=== PATIENT | female | born 1955 | race Two or more races ===

== ENCOUNTER 2016-12-15 20:17 | Inpatient (IN) | payer MEDICARE, OTHER ==
[~2016-12-15] VITALS: Ht 172.7 cm; Wt 116.1 kg
--- NOTE | 2016-12-15 20:30 | NUR ---
ADMITTED A 60 Y/O FEMALE FROM [facility], PATIENT BROUGHT BY AMBULANCE VIA [facility], ON 5150 HOLD DTS, BASED ON HOLD, PATIENT IS CALLED THE SHERRIFF AND STATED THAT SHE IS SUICIDAL, SHE KEEPS ON SAYING THAT SHE WAS ON THE EDGE BUT REFUSED TO DISCUSS THE PLAN. PATIENT ADMITTING DX. PSYCHOSIS AND MEDICAL DX. OF COPD, SARCOIDOSIS, DYSLIPIDEMIA AND EMPHYSEMA. UPON FACE TO FACE EVALUATION, PATIENT APPEARED ALERT AND ORIENTED X 3, CALM, QUIET, DEPRESSED, ISOLATIVE, COOPERATIVE, PATIENT STATED THAT SHE IS ON THE EDGE OF BEING SUICIDAL BUT NO PLAN. HEAD TO TOE ASSESSMENT DONE. PICTURES DONE. PATIENT UNABLE TO SIGN PAPER WORKS. BELONGINGS AND CONTRABAND INSPECTED AND PLACED TO SAFETY LOCKED CABINET. NOTIFIED DR. DRISCOLL. NOTIFIED DR. SMITH TO RECONCILE THE MEDICATIONS. WILL CONTINUE TO MONITOR [id number] FOR SAFETY
[2016-12-15] MEDS ORDERED: BENZ-13 PO (22:28)
[2016-12-15] MEDS ORDERED: LAMO200T2 PO (22:28)
[2016-12-15] MEDS ORDERED: CARI350T PO (22:28)
[2016-12-15] MEDS ORDERED: IPRA3AMP NEB (22:28)
[2016-12-15] MEDS ORDERED: HYDR-548 PO (22:28)
[2016-12-15] MEDS ORDERED: BUPR300T52 PO (22:28)
[2016-12-15] MEDS ORDERED: DIAZ10TA PO (22:30)
[2016-12-15] MEDS ORDERED: DOXY100C53 PO (22:31)
[2016-12-15] MEDS ORDERED: OLAN15TA3 PO (22:35)
[2016-12-15] MEDS ORDERED: PRED20TA PO (22:35)
[2016-12-15] MEDS ORDERED: ZIPR60CA2 PO (22:35)
--- NOTE | 2016-12-15 22:57 | NUR ---
GPS RN NOTE: PATIENT REQUESTED SLEEPING PILL, TEMAZEPAM 15 MG PO GIVEN FOR INABILITY TO SLEEP, CHARGE NURSE OVERRIDE THE MEDICATION, WILL CONTINUE TO MONITOR [id number] FOR SAFETY
[2016-12-16 00:51] VITALS: BP 134/78
--- NOTE | 2016-12-16 05:52 | NUR ---
GPS RN NOTE TYLENOL 650 MG PO GIVEN ORDERED FOR 610 HEADACHE, REQUESTED BY THE PATIENT, CN OVERRIDE MEDICATION
--- NOTE | 2016-12-16 07:05 | NUR ---
GPS RN NOTE: BRUNA (SON) NOTIFIED OF THE ADMISSION OF THE PATIENT
[2016-12-16 07:18] LABS: BASOPHILS % (AUTO) 0.4 % (0.0-2.0); EOSINOPHILS # (AUTO) 0.2 /CMM (0.0-0.7); EOSINOPHILS % (AUTO) 2.1 % (0.0-6.0); HEMATOCRIT 44 % (33-45); HEMOGLOBIN 14.7 g/dL (11.5-14.8); LYMPHOCYTES % (AUTO) 31.5 % (20.0-44.0); MEAN CORPUSCULAR HEMOGLOBIN 33 PG (26.0-33.0); MEAN CORPUSCULAR HGB CONC 34 g/dl (31.0-36.0); MEAN CORPUSCULAR VOLUME 97 fL (82-100); MONOCYTES # (AUTO) 0.6 /CMM (0.1-1.30); MONOCYTES % (AUTO) 5.8 % (2.0-12.0); NEUTROPHILS # (AUTO) 5.8 /CMM (1.8-8.9); NEUTROPHILS % (AUTO) 60.2 % (43.0-81.0); PLATELET COUNT (AUTO) 265 /CMM (150-450); RDW COEFFICIENT OF VARIATION 13.2 (11.5-15.0); RED BLOOD CELL COUNT(AUTO) 4.51 MIL/uL (4.0-5.2); WHITE BLOOD COUNT (AUTO) 9.6 K/uL (4.3-11.0)
[2016-12-16 07:50] LABS: ALBUMIN 3.3 g/dL (3.4-5.0); BILIRUBIN,TOTAL 0.4 mg/dL (0.2-1.0); CALCIUM, SERUM 8.8 mg/dL (8.5-10.1); POTASSIUM 3.8 mmol/L (3.5-5.1); TOTAL PROTEIN, SERUM 6.4 g/dL (6.4-8.2)
[2016-12-16 08:00] VITALS: BP 130/76
--- NOTE | 2016-12-16 09:17 | NUR ---
GPS RN NOTES/ ADMINISTERED KLONOPIN 0.5 MG PO PRN FOR ANXIETY, PARANOIA, PER PATIENT REQUEST, V/S TAKEN EJ=535/76, P-75, CONTINUED MONITORING.
--- NOTE | 2016-12-16 15:32 | NUR ---
Initial Discharge Plan: Patient resides in a house with her two sons, located at [address] [place] [id number]; [phone] and wishes to return there upon discharge. SW spoke with pt's son, Kyler at [phone]. Kyler stated that he also wanted his mother to return back home once she was stable. Patient will be given a referral for Nicotine Anonymous upon discharge. AMOS will work to formulate a safe and proper discharge.
[2016-12-16 15:59] VITALS: BP 154/70
--- NOTE | 2016-12-16 18:05 | NUR ---
GPS RN NOTES/ ADMINISTERED DIAZEPAM 5 MG PO PRN FOR ANXIETY, PARANOIA, PER PATIENT REQUEST, V/S TAKEN BP-154/70, P-72, CONTINUED MONITORING.
[2016-12-16 20:26] VITALS: BP 132/61
[2016-12-17 08:08] VITALS: BP 145/98
--- NOTE | 2016-12-17 15:29 | NUR ---
AMOS spoke with pt's psychiatrist, Dr. Narvaez, who informed SW that pt could be discharged tomorrow, sometime after noon. SW called pt's son, Kyler, at [phone] and updated him. Kyler confirmed that he will be able to pick pt up tomorrow once a time is confirmed. AMOS will follow up with discharge.
[2016-12-17 16:12] VITALS: BP 139/71
--- NOTE | 2016-12-17 18:36 | NUR ---
GPS RN NOTES/ ADMINISTERED DIAZEPAM 5 MG PO PRN FOR ANXIETY, PER PATIENT REQUEST, V/S TAKEN BP-139/71, P-86, CONTINUED MONITORING.
[2016-12-17 20:11] VITALS: BP 109/64
--- NOTE | 2016-12-18 06:43 | NUR ---
RN GPS NOTES PATIENT AWAKE AT THIS TIME , NO ACUTE DISTRESS NOTED . ALL NEEDS ATTENDED ANTICIPATED . DENIES SI/HI AT THIS TIME , WILL ENDORSE TO NEXT SHIFT FOR CONTINUITY CARE
[2016-12-18 08:00] VITALS: BP 129/69
--- NOTE | 2016-12-18 08:55 | NUR ---
DR. DRISCOLL GAVE AN ORDER TO D/C HOLD D/C HOME. PT. WITHOUT DISTRESS, DENIES SUICIDAL AND HOMICIDAL. TO FOLLOW UP WITH PSYCH AND MEDICAL DOCTORS.
--- NOTE | 2016-12-18 12:09 | NUR ---
Discharge Note: Patient will be discharged home [[address] [facility] [address] [facility], [place] [address]; [phone]] via private transportation at 1pm. Patient will be picked up by her son, Issa Barron [[phone]]. confirmed with patients son Issa who is aware of the discharge plan and stated that he will be able to pick patient up around 1pm. Patient will follow up with her psychiatrist, Dr. Damico, [address] [facility] [address], [place] [address], on 01/06/17 at 3pm. Patient will follow up with Dr. Latonia Tenorio [psychologist], [address] [facility] [address]; on 12/19/16 at 3:15pm. Patient was provided referrals for smoking. Patient was encouraged to attend a Nicotine Anonymous meeting on 12/25/16 at 7pm; [address], [place], [place].
--- NOTE | 2016-12-18 13:20 | NUR ---
GPS RN: PATIENT DISCHARGED HOME WITH SON BRUNA NOVA. PATIENT'S CONDITION IS STABLE FOR DISCHARGE, VS STABLE. PATIENT DENIES SUICIDAL IDEATION. ALL BELONGINGS RETURNED TO THE PATIENT, BELONGINGS FORM SIGNED. PATIENT REFUSED PICTURES, STATING "THEY ALREADY DID IT". PATIENT PROVIDED WITH PRESCRIPTIONS AND EDUCATIONAL EXIT CARE. LEFT THE UNIT IN A WHEELCHAIR ACCOMPANIED BY SON AND STAFF, WENT VIA PRIVATE CAR.
== END 2016-12-18 13:20 | disposition home or self-care (01) | DRG 885 ==
LOC: GPS 20:17
PROVIDERS: ADMIT Psychiatry & Neurology Psychiatry; ATTEND Internal Medicine
DX: F31.64 Bipolar disorder, current episode mixed, severe, with psychotic features (principal); I10 Essential (primary) hypertension; E78.5 Hyperlipidemia, unspecified; E66.9 Obesity, unspecified; G89.4 Chronic pain syndrome; F41.9 Anxiety disorder, unspecified; K21.9 Gastro-esophageal reflux disease without esophagitis; J44.9 Chronic obstructive pulmonary disease, unspecified; F17.210 Nicotine dependence, cigarettes, uncomplicated; M06.9 Rheumatoid arthritis, unspecified; M19.90 Unspecified osteoarthritis, unspecified site; M79.7 Fibromyalgia; Z68.38 Body mass index [BMI] 38.0-38.9, adult
CPT/HCPCS: 36415; 80053-TC; 80061-TC; 85025-TC; 87081-TC